=== PATIENT | male | born 1995 | race Hispanic/Latino ===

== ENCOUNTER 2016-07-30 07:28 | Emergency (ER) | payer OTHER ==
--- NOTE | 2016-07-30 10:49 | REP ---
MRA BRAIN WITHOUT CONTRAST: HISTORY: Headache. 3D [id number] MR angiography was performed at the level of the [place]. 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 There is origin of the posterior cerebral arteries. 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 There is no other aneurysm or arteriovenous malformation. Major intracranial vessels are patent. The left vertebral artery is dominant. IMPRESSION: There is a possible 2 cm aneurysm versus a hypoplastic P1 segment of the right posterior cerebral artery. Signed by Robert Chahal MD 07/30/2016 11:12 A
--- NOTE | 2016-07-30 10:52 | REP ---
MRI BRAIN WITHOUT CONTRAST: HISTORY: Headache. There are no areas of abnormal signal intensity in the brain. There is no intraparenchymal hemorrhage, infarct, mass or midline shift. The ventricular system is normal in appearance. A small arachnoid cyst is present in the left middle cranial fossa. The arachnoid cyst measures 1.5 cm in transverse by 2.5 cm in AP by 2.2 cm in cephalocaudal dimensions. There is minimal mass effect on the adjacent anteromedial left temporal lobe. There is no subdural fluid collection. The cerebellar tonsils extend 7 mm inferior through the foramen magnum consistent with cerebellar tonsillar ectopia. There is no syrinx in the visualized cervical spinal cord. The sinuses are clear. IMPRESSION: 1. Small left middle cranial fossa arachnoid cyst as described above. 2. Cerebellar tonsillar ectopia. 3. Subarachnoid and intraventricular hemorrhage cannot be excluded. Signed by Robert Chahal MD 07/30/2016 10:53 A
--- NOTE | 2016-07-30 13:07 | EDDOCDS ---
Nurse's Notes [facility] Name: Lior Locke Age: 21 yrs Sex: Male : 1995 Arrival Date: 07/30/2016 Time: 07:28 Bed 17 Private MD: Diagnosis: Headache Presentation: 07/30 07:46 Presenting complaint: Patient states: Headache began two and half weeks ago, CT in [address] [place] a week ago ? Chiari Malformation PA from [facility] sent pt here for MRI. This patient has no additional risk factors. Adult Sepsis Screening: The patient does not have new or worsening altered mentation. Patient's respiratory rate is less than 22. Systolic blood pressure is greater than 100. Patient has a qSOFA score of 0- Negative Sepsis Screen. Suicide/Homicide risk assessment- the patient denies having any suicidal and/or homicidal ideations and does not present with any other emotional, behavioral or mental health complaints. 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 Transition of care: patient was not received from another setting of care. 07:46 Acuity: ASHLEE Level 3 b1 07:46 Method Of Arrival: Walkin/Carried/Asstd mlb1 Triage Assessment: 07:56 Headache History: This patient has a history of headaches and the character of this mlb1 headache is like all previous headaches. General: Appears in no apparent distress, Behavior is appropriate for age, cooperative. Pain: Location: head Pain currently is 5 out of 10 on a pain scale. Quality of pain is described as aching. Pt Declines HIV testing. Neurological: No deficits noted. Historical: - Allergies: no known allergies; - Home Meds: 1. tramadol 50 mg Oral tab every 6 hours as needed - PMHx: bulging disc; - PSHx: none; - Social history: Smoking status: Patient states was never smoker of tobacco. No barriers to communication noted, The patient speaks fluent Armenian, Speaks appropriately for age. - Family history: Not pertinent. - : The pt / caregiver states he / she is not on anticoagulants. Home medication list is obtained from the patient. - Exposure Risk Screening:: None identified. Screenin:57 Screening information is obtained from the patient. Fall risk: No risks identified. kr3 Assistance ADL's: requires no assistance with activities of daily living. Abuse/DV Screen: The patient / caregiver reports he/she is: not in a situation that causes fear, pain or injury. Nutritional screening: No deficits noted. Advance Directives: Currently, there is no health care proxy. home support is adequate. Assessment: 08:56 Reassessment: Patient appears in no apparent distress at this time. Pain: Location: kr3 right side of head. Neurological: Level of Consciousness is awake, alert, Vegetable Grader are equal bilaterally Moves all extremities. Gait is steady, Speech is normal, Facial symmetry appears normal. Respiratory: Respiratory effort is even, unlabored. GI: Denies nausea. Derm: Skin is normal. 09:29 Reassessment: Patient appears in no apparent distress at this time. aware is waiting [facility] for his turn for MRI, watching TV with no complaints. 09:30 Adult Sepsis Screening: The patient does not have new or worsening altered mentation. kr3 Patient's respiratory rate is less than 22. Systolic blood pressure is greater than 100. Patient has a qSOFA score of 0- Negative Sepsis Screen. 10:20 Reassessment: patient in MRI. kr3 10:32 Reassessment: Patient appears in no apparent distress at this time. Pain: Location: kr3 back and right side of head Pain currently is 4 out of 10 on a pain scale. Neurological: No deficits noted. 11:16 Reassessment: Patient appears in no apparent distress at this time. resting on kr3 stretcher with no complaints at this time. aware he is waiting for results of MRI. 12:23 Adult Sepsis Screening: The patient does not have new or worsening altered mentation. kr3 Patient's respiratory rate is less than 22. Systolic blood pressure is greater than 100. Patient has a qSOFA score of 0- Negative Sepsis Screen. 12:26 Reassessment: reports steady headache of 4/10. Neurological: Level of Consciousness is kr3 awake, alert, Moves all extremities. Speech is normal, Facial symmetry appears normal. 13:06 Reassessment: Patient appears in no apparent distress at this time. Pain: Location: kr3 head Pain currently is 4 out of 10 on a pain scale. Is continuous. Respiratory: Respiratory effort is even, unlabored. Derm: Skin is pink, warm & dry. Vital Signs: 07:55 BP 138 / 69; Pulse 58; Resp 16; Temp 97.9(TE); Pulse Ox 99% on R/A; Weight 79.38 kg mlb1 (R); Height 5 ft. 7 in. (170.18 cm) (R); Pain 5/10; 12:26 BP 132 / 56; Pulse 52; Resp 16; Temp 97.9(O); Pulse Ox 100% on R/A; Pain 4/10; kr3 07:55 Body Mass Index 27.41 (79.38 kg, 170.18 cm) mlb1 Vitals: 07:55 Log In Time: July 30, 2016 at 07:28. mlb1 ED Course: 07:31 Patient visited by Jhonathan Webster Reg. pm4 07:31 Patient moved to Waiting pm4 07:46 Patient visited by Fantasma Millard, KAMINI. mlb1 07:50 Triage Initiated mlb1 07:56 Patient visited by Fantasma Millard RN. mlb1 08:16 Patient moved to 17 mlb1 08:17 Rabia Ortega MD is Attending Physician. sd1 08:22 Patient visited by Rabia Ortega MD. sd1 08:58 The patient / caregiver is instructed regarding the plan of care and ED course. Patient nathen has correct armband on for positive identification. Bed in low position. Call light in reach. 09:10 Patient visited by Julius Prajapati PCA. jlf 09:19 [facility] Payment Agreement was scanned into [employer] and attached to record. pm4 09:30 No procedures done that require assistance. kr3 09:51 Patient visited by Julius Prajapati PCA. jlf 10:32 Patient visited by Mckenzie Gibson RN. kr3 11:10 -MRA-Brain without contrast Returned. EDMS 11:10 -MRI-Brain without Returned. EDMS 11:16 Patient visited by Mckenzie Gibson RN. kr3 11:53 Patient visited by Julius Prajapati PCA. jlf 12:18 Patient visited by Julius Prajapati PCA. jlf 12:42 Alessio Ireland is Referral Physician. sd1 13:06 No IV's were initiated during this patient's visit. kr3 Order Results: Radiology Order: -MRA-Brain without contrast Test: -MRA-Brain without contrast REASON FOR EXAMINATION: headaches; MRA BRAIN WITHOUT CONTRAST:; ; HISTORY: Headache.; ; 3D [id number]-gh-[id number] MR angiography was performed at the level of the [place]. 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 There is origin of the; posterior cerebral arteries. 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 There is no other; aneurysm or arteriovenous malformation. 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 There is no; intraparenchymal hemorrhage, infarct, mass or midline shift. The ventricular; system is normal in appearance. A small arachnoid cyst is present in the left; middle cranial fossa. The arachnoid cyst measures 1.5 cm in transverse by 2.5 cm; in AP by 2.2 cm in cephalocaudal dimensions. There is minimal mass effect on the; adjacent anteromedial left temporal lobe. There is no subdural fluid collection.; The cerebellar tonsils extend 7 mm inferior through the foramen magnum consistent; with cerebellar tonsillar ectopia. There is no syrinx in the visualized cervical; spinal cord. The sinuses are clear.; ; IMPRESSION:; ; 1. 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 Cerebellar tonsillar ectopia.; ; 3. Subarachnoid and intraventricular hemorrhage cannot be excluded.; ; ; Signed by; Robert Chahal MD 07/30/2016 10:53 A; Outcome: 10:20 MRI Study completed. kr3 12:42 Discharge ordered by Provider. sd1 13:05 Discharge Assessment: patient administered narcotics - no. The following High Risk kr3 Discharge criteria are identified: None. Discharged to home ambulatory. Condition: stable. Discharge instructions given to patient, Instructed on discharge instructions, follow up and referral plans. Demonstrated understanding of instructions, Pt was receptive of discharge instructions/ teaching. Property sent home with patient. 13:06 Patient left the ED. kr3 Signatures: [facility] Rabia Jeffery MD MD sd1 Fantasma Millard RN RN mlb1 Mckenzie Gibson RN RN kr3 Julius Prajapati, AIR POLLUTION AUDITOR AIR POLLUTION AUDITOR jlf Jhonathan Webster, Reg Reg pm4 NATHANIELD
--- NOTE | 2016-07-30 13:07 | EDDOCDS ---
Physician Documentation [facility] Name: Lior Locke Age: 21 yrs Sex: Male : 1995 Arrival Date: 07/30/2016 Time: 07:28 Bed 17 Private MD: Disposition: 07/30/16 12:42 Discharged to Home/Self Care. Impression: Headache. - Condition is Stable. - Discharge Instructions: General Headache Without Cause, Migraine Headache, Migraine Headache, Liww-bf-Yutd, General Headache Without Cause, Hkly-zp-Evxu. - Medication Reconciliation, Local Pharmacy Hours form. - Follow up: Alessio Ireland; When: Call to arrange an appointment. - Problem is an ongoing problem. - Symptoms are unchanged. Historical: - Allergies: no known allergies; - Home Meds: 1. tramadol 50 mg Oral tab every 6 hours as needed - PMHx: bulging disc; - PSHx: none; - Social history: Smoking status: Patient states was never smoker of tobacco. No barriers to communication noted, The patient speaks fluent [place] Sudanese, Speaks appropriately for age. - Family history: Not pertinent. - : The pt / caregiver states he / she is not on anticoagulants. Home medication list is obtained from the patient. - Exposure Risk Screening:: None identified. Vital Signs: 07/30 07:55 BP 138 / 69; Pulse 58; Resp 16; Temp 97.9(TE); Pulse Ox 99% on R/A; Weight 79.38 kg / mlb1 175 lbs (R); Height 5 ft. 7 in. (170.18 cm) (R); Pain 5/10; 12:26 BP 132 / 56; Pulse 52; Resp 16; Temp 97.9(O); Pulse Ox 100% on R/A; Pain 4/10; kr3 07:55 Body Mass Index 27.41 (79.38 kg, 170.18 cm) mlb1 MDM: 08:23 MRI Screening Tool - Place on chart, inform RN ordered. sd1 08:23 MRI Screening Tool - Place on chart, inform RN ordered. sd1 08:23 -MRA-Brain without contrast Ordered. EDMS 08:24 -MRI-Brain without Ordered. EDMS 08:25 MRI Screening Tool - Place on chart, inform RN complete. kr3 09:06 Financial registration complete. pm4 09:06 MRI Screening Tool - Place on chart, inform RN complete. lbd 09:19 [facility] Payment Agreement was scanned into [employer] and attached to record. pm4 Signatures: Dispatcher [employer] EDMS Rabia Ortega MD MD sd1 Annemarie Cao, Potato Loader Unit lbd Fantasma Millard RN RN mlb1 Mckenzie GibsonRN RN kr3 Jhonathan Webster, Reg Reg pm4 The chart was reviewed and I authenticate all verbal orders and agree with the evaluation and treatment provided.Attachments: 09:19 [facility] Payment Agreement pm4 MTDD
--- NOTE | 2016-08-01 14:07 | EDDOCDS ---
Physician Documentation [facility] Name: Lior Locke Age: 21 yrs Sex: Male : 1995 Arrival Date: 07/30/2016 Time: 07:28 Bed 17 Private MD: Disposition: 07/30/16 12:42 Discharged to Home/Self Care. Impression: Headache. - Condition is Stable. - Discharge Instructions: General Headache Without Cause, Migraine Headache, Migraine Headache, Wbus-yj-Wfpa, General Headache Without Cause, Iuog-ev-Mefp. - Medication Reconciliation, Local Pharmacy Hours form. - Follow up: Alessio Ireland; When: Call to arrange an appointment. - Problem is an ongoing problem. - Symptoms are unchanged. Historical: - Allergies: no known allergies; - Home Meds: 1. tramadol 50 mg Oral tab every 6 hours as needed - PMHx: bulging disc; - PSHx: none; - Social history: Smoking status: Patient states was never smoker of tobacco. No barriers to communication noted, The patient speaks fluent Nepalese, Speaks appropriately for age. - Family history: Not pertinent. - : The pt / caregiver states he / she is not on anticoagulants. Home medication list is obtained from the patient. - Exposure Risk Screening:: None identified. Vital Signs: 07/30 07:55 BP 138 / 69; Pulse 58; Resp 16; Temp 97.9(TE); Pulse Ox 99% on R/A; Weight 79.38 kg / mlb1 175 lbs (R); Height 5 ft. 7 in. (170.18 cm) (R); Pain 5/10; 12:26 BP 132 / 56; Pulse 52; Resp 16; Temp 97.9(O); Pulse Ox 100% on R/A; Pain 4/10; kr3 07:55 Body Mass Index 27.41 (79.38 kg, 170.18 cm) mlb1 MDM: 08:23 MRI Screening Tool - Place on chart, inform RN ordered. sd1 08:23 MRI Screening Tool - Place on chart, inform RN ordered. sd1 08:23 -MRA-Brain without contrast Ordered. EDMS 08:24 -MRI-Brain without Ordered. EDMS 08:25 MRI Screening Tool - Place on chart, inform RN complete. kr3 09:06 Financial registration complete. pm4 09:06 MRI Screening Tool - Place on chart, inform RN complete. lbd 09:19 [facility] Payment Agreement was scanned into [employer] and attached to record. pm4 08/01 11:39 T-Sheet-- Draft Copy was scanned into [employer] and attached to record. gb Signatures: Dispatcher [employer] Rabia Jeffery MD MD sd1 Annemarie Cao, Poker Manager Unit lbd Rekha Willingham, Reg Reg gb Fantasma Millard RN RN mlb1 Mckenzie Gibson RN RN kr3 Jhonathan Webster, Reg Reg pm4 The chart was reviewed and I authenticate all verbal orders and agree with the evaluation and treatment provided.Attachments: 07/30 09:19 [facility] Payment Agreement pm4 08/01 11:39 T-Sheet-- Draft Copy gb Chart Complete MTDD
--- NOTE | 2016-08-01 14:07 | EDDOCDS ---
Physician Documentation [facility] Name: Lior Locke Age: 21 yrs Sex: Male : 1995 Arrival Date: 07/30/2016 Time: 07:28 Bed 17 Private MD: Disposition: 07/30/16 12:42 Discharged to Home/Self Care. Impression: Headache. - Condition is Stable. - Discharge Instructions: General Headache Without Cause, Migraine Headache, Migraine Headache, Dljr-qc-Hoao, General Headache Without Cause, Gziy-rv-Uuat. - Medication Reconciliation, Local Pharmacy Hours form. - Follow up: Alessio Ireland; When: Call to arrange an appointment. - Problem is an ongoing problem. - Symptoms are unchanged. Historical: - Allergies: no known allergies; - Home Meds: 1. tramadol 50 mg Oral tab every 6 hours as needed - PMHx: bulging disc; - PSHx: none; - Social history: Smoking status: Patient states was never smoker of tobacco. No barriers to communication noted, The patient speaks fluent Nicaraguan, Speaks appropriately for age. - Family history: Not pertinent. - : The pt / caregiver states he / she is not on anticoagulants. Home medication list is obtained from the patient. - Exposure Risk Screening:: None identified. Vital Signs: 07/30 07:55 BP 138 / 69; Pulse 58; Resp 16; Temp 97.9(TE); Pulse Ox 99% on R/A; Weight 79.38 kg / mlb1 175 lbs (R); Height 5 ft. 7 in. (170.18 cm) (R); Pain 5/10; 12:26 BP 132 / 56; Pulse 52; Resp 16; Temp 97.9(O); Pulse Ox 100% on R/A; Pain 4/10; kr3 07:55 Body Mass Index 27.41 (79.38 kg, 170.18 cm) mlb1 MDM: 08:23 MRI Screening Tool - Place on chart, inform RN ordered. sd1 08:23 MRI Screening Tool - Place on chart, inform RN ordered. sd1 08:23 -MRA-Brain without contrast Ordered. EDMS 08:24 -MRI-Brain without Ordered. EDMS 08:25 MRI Screening Tool - Place on chart, inform RN complete. kr3 09:06 Financial registration complete. pm4 09:06 MRI Screening Tool - Place on chart, inform RN complete. lbd 09:19 [facility] Payment Agreement was scanned into [employer] and attached to record. pm4 08/01 11:39 T-Sheet-- Draft Copy was scanned into [employer] and attached to record. gb Signatures: Dispatcher [employer] Rabia Jeffery MD MD sd1 Annemarie Cao, Cardiology Physician Unit lbd Rekha Willingham, Reg Reg gb Fantasma Millard RN RN mlb1 Mckenzie Gibson RN RN kr3 Jhonathan Webster, Reg Reg pm4 The chart was reviewed and I authenticate all verbal orders and agree with the evaluation and treatment provided.Attachments: 07/30 09:19 [facility] Payment Agreement pm4 08/01 11:39 T-Sheet-- Draft Copy gb Chart Complete MTDD
--- NOTE | 2016-08-01 14:07 | EDDOCDS ---
Nurse's Notes [facility] Name: Lior Locke Age: 21 yrs Sex: Male : 1995 Arrival Date: 07/30/2016 Time: 07:28 Bed 17 Private MD: Diagnosis: Headache Presentation: 07/30 07:46 Presenting complaint: Patient states: Headache began two and half weeks ago, CT in [address] [place] a week ago ? Chiari Malformation PA from [facility] sent pt here for MRI. This patient has no additional risk factors. Adult Sepsis Screening: The patient does not have new or worsening altered mentation. Patient's respiratory rate is less than 22. Systolic blood pressure is greater than 100. Patient has a qSOFA score of 0- Negative Sepsis Screen. Suicide/Homicide risk assessment- the patient denies having any suicidal and/or homicidal ideations and does not present with any other emotional, behavioral or mental health complaints. 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 Transition of care: patient was not received from another setting of care. 07:46 Acuity: ASHLEE Level 3 b1 07:46 Method Of Arrival: Walkin/Carried/Asstd mlb1 Triage Assessment: 07:56 Headache History: This patient has a history of headaches and the character of this mlb1 headache is like all previous headaches. General: Appears in no apparent distress, Behavior is appropriate for age, cooperative. Pain: Location: head Pain currently is 5 out of 10 on a pain scale. Quality of pain is described as aching. Pt Declines HIV testing. Neurological: No deficits noted. Historical: - Allergies: no known allergies; - Home Meds: 1. tramadol 50 mg Oral tab every 6 hours as needed - PMHx: bulging disc; - PSHx: none; - Social history: Smoking status: Patient states was never smoker of tobacco. No barriers to communication noted, The patient speaks fluent Chinese, Speaks appropriately for age. - Family history: Not pertinent. - : The pt / caregiver states he / she is not on anticoagulants. Home medication list is obtained from the patient. - Exposure Risk Screening:: None identified. Screenin:57 Screening information is obtained from the patient. Fall risk: No risks identified. kr3 Assistance ADL's: requires no assistance with activities of daily living. Abuse/DV Screen: The patient / caregiver reports he/she is: not in a situation that causes fear, pain or injury. Nutritional screening: No deficits noted. Advance Directives: Currently, there is no health care proxy. home support is adequate. Assessment: 08:56 Reassessment: Patient appears in no apparent distress at this time. Pain: Location: kr3 right side of head. Neurological: Level of Consciousness is awake, alert, Employee Development Manager are equal bilaterally Moves all extremities. Gait is steady, Speech is normal, Facial symmetry appears normal. Respiratory: Respiratory effort is even, unlabored. GI: Denies nausea. Derm: Skin is normal. 09:29 Reassessment: Patient appears in no apparent distress at this time. aware is waiting [facility] for his turn for MRI, watching TV with no complaints. 09:30 Adult Sepsis Screening: The patient does not have new or worsening altered mentation. kr3 Patient's respiratory rate is less than 22. Systolic blood pressure is greater than 100. Patient has a qSOFA score of 0- Negative Sepsis Screen. 10:20 Reassessment: patient in MRI. kr3 10:32 Reassessment: Patient appears in no apparent distress at this time. Pain: Location: kr3 back and right side of head Pain currently is 4 out of 10 on a pain scale. Neurological: No deficits noted. 11:16 Reassessment: Patient appears in no apparent distress at this time. resting on kr3 stretcher with no complaints at this time. aware he is waiting for results of MRI. 12:23 Adult Sepsis Screening: The patient does not have new or worsening altered mentation. kr3 Patient's respiratory rate is less than 22. Systolic blood pressure is greater than 100. Patient has a qSOFA score of 0- Negative Sepsis Screen. 12:26 Reassessment: reports steady headache of 4/10. Neurological: Level of Consciousness is kr3 awake, alert, Moves all extremities. Speech is normal, Facial symmetry appears normal. 13:06 Reassessment: Patient appears in no apparent distress at this time. Pain: Location: kr3 head Pain currently is 4 out of 10 on a pain scale. Is continuous. Respiratory: Respiratory effort is even, unlabored. Derm: Skin is pink, warm & dry. Vital Signs: 07:55 BP 138 / 69; Pulse 58; Resp 16; Temp 97.9(TE); Pulse Ox 99% on R/A; Weight 79.38 kg mlb1 (R); Height 5 ft. 7 in. (170.18 cm) (R); Pain 5/10; 12:26 BP 132 / 56; Pulse 52; Resp 16; Temp 97.9(O); Pulse Ox 100% on R/A; Pain 4/10; kr3 07:55 Body Mass Index 27.41 (79.38 kg, 170.18 cm) mlb1 Vitals: 07:55 Log In Time: July 30, 2016 at 07:28. mlb1 ED Course: 07:31 Patient visited by Jhonathan Webster Reg. pm4 07:31 Patient moved to Waiting pm4 07:46 Patient visited by Fantasma Millard, KAMINI. mlb1 07:50 Triage Initiated mlb1 07:56 Patient visited by Fantasma Millard, KAMINI. mlb1 08:16 Patient moved to 17 mlb1 08:17 Rabia Ortega MD is Attending Physician. sd1 08:22 Patient visited by Rabia Ortega MD. sd1 08:58 The patient / caregiver is instructed regarding the plan of care and ED course. Patient nathen has correct armband on for positive identification. Bed in low position. Call light in reach. 09:10 Patient visited by Julius Prajapati PCA. jlf 09:19 [facility] Payment Agreement was scanned into [employer] and attached to record. pm4 09:30 No procedures done that require assistance. kr3 09:51 Patient visited by Julius Prajapati PCA. jlf 10:32 Patient visited by Mckenzie Gibson RN. kr3 11:10 -MRA-Brain without contrast Returned. EDMS 11:10 -MRI-Brain without Returned. EDMS 11:16 Patient visited by Mckenzie Gibson RN. kr3 11:53 Patient visited by Julius Prajapati PCA. jlf 12:18 Patient visited by Julius Prajapati PCA. jlf 12:42 Alessio Ireland is Referral Physician. sd1 13:06 No IV's were initiated during this patient's visit. kr3 08/01 11:39 T-Sheet-- Draft Copy was scanned into [employer] and attached to record. gb Order Results: Radiology Order: -MRA-Brain without contrast Test: -MRA-Brain without contrast REASON FOR EXAMINATION: headaches; MRA BRAIN WITHOUT CONTRAST:; ; HISTORY: Headache.; ; 3D [id number] MR angiography was performed at the level of the [place] of; [place]. 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 There is origin of the; posterior cerebral arteries. 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 There is no other; aneurysm or arteriovenous malformation. 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 There is no; intraparenchymal hemorrhage, infarct, mass or midline shift. The ventricular; system is normal in appearance. A small arachnoid cyst is present in the left; middle cranial fossa. The arachnoid cyst measures 1.5 cm in transverse by 2.5 cm; in AP by 2.2 cm in cephalocaudal dimensions. There is minimal mass effect on the; adjacent anteromedial left temporal lobe. There is no subdural fluid collection.; The cerebellar tonsils extend 7 mm inferior through the foramen magnum consistent; with cerebellar tonsillar ectopia. There is no syrinx in the visualized cervical; spinal cord. The sinuses are clear.; ; IMPRESSION:; ; 1. 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 Cerebellar tonsillar ectopia.; ; 3. Subarachnoid and intraventricular hemorrhage cannot be excluded.; ; ; Signed by; Robert Chahal MD 07/30/2016 10:53 A; Outcome: 07/30 10:20 MRI Study completed. kr3 12:42 Discharge ordered by Provider. sd1 13:05 Discharge Assessment: patient administered narcotics - no. The following High Risk kr3 Discharge criteria are identified: None. Discharged to home ambulatory. Condition: stable. Discharge instructions given to patient, Instructed on discharge instructions, follow up and referral plans. Demonstrated understanding of instructions, Pt was receptive of discharge instructions/ teaching. Property sent home with patient. 13:06 Patient left the ED. kr3 Signatures: Dispatcher [employer] EDMS Rabia Ortega MD MD sd1 Rekha Willingham, Reg Reg gb Fantasma Millard RN RN mlb1 Mckenzie Gibson,RN RN kr3 Julius Prajapati, COURT RECORDER COURT RECORDER jl Jhonathan Webster, Reg Reg pm4 Chart Complete MTDD
--- NOTE | 2016-08-01 21:24 | EDDOCDS ---
Nurse's Notes [facility] Name: Lior Locke Age: 21 yrs Sex: Male : 1995 Arrival Date: 07/30/2016 Time: 07:28 Bed 17 Private MD: Diagnosis: Headache Presentation: 07/30 07:46 Presenting complaint: Patient states: Headache began two and half weeks ago, CT in [address] [place] a week ago ? Chiari Malformation PA from [facility] sent pt here for MRI. This patient has no additional risk factors. Adult Sepsis Screening: The patient does not have new or worsening altered mentation. Patient's respiratory rate is less than 22. Systolic blood pressure is greater than 100. Patient has a qSOFA score of 0- Negative Sepsis Screen. Suicide/Homicide risk assessment- the patient denies having any suicidal and/or homicidal ideations and does not present with any other emotional, behavioral or mental health complaints. 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 Transition of care: patient was not received from another setting of care. 07:46 Acuity: ASHLEE Level 3 b1 07:46 Method Of Arrival: Walkin/Carried/Asstd mlb1 Triage Assessment: 07:56 Headache History: This patient has a history of headaches and the character of this mlb1 headache is like all previous headaches. General: Appears in no apparent distress, Behavior is appropriate for age, cooperative. Pain: Location: head Pain currently is 5 out of 10 on a pain scale. Quality of pain is described as aching. Pt Declines HIV testing. Neurological: No deficits noted. Historical: - Allergies: no known allergies; - Home Meds: 1. tramadol 50 mg Oral tab every 6 hours as needed - PMHx: bulging disc; - PSHx: none; - Social history: Smoking status: Patient states was never smoker of tobacco. No barriers to communication noted, The patient speaks fluent Icelandic, Speaks appropriately for age. - Family history: Not pertinent. - : The pt / caregiver states he / she is not on anticoagulants. Home medication list is obtained from the patient. - Exposure Risk Screening:: None identified. Screenin:57 Screening information is obtained from the patient. Fall risk: No risks identified. kr3 Assistance ADL's: requires no assistance with activities of daily living. Abuse/DV Screen: The patient / caregiver reports he/she is: not in a situation that causes fear, pain or injury. Nutritional screening: No deficits noted. Advance Directives: Currently, there is no health care proxy. home support is adequate. Assessment: 08:56 Reassessment: Patient appears in no apparent distress at this time. Pain: Location: kr3 right side of head. Neurological: Level of Consciousness is awake, alert, [place] G[place] are equal bilaterally Moves all extremities. Gait is steady, Speech is normal, Facial symmetry appears normal. Respiratory: Respiratory effort is even, unlabored. GI: Denies nausea. Derm: Skin is normal. 09:29 Reassessment: Patient appears in no apparent distress at this time. aware is waiting [facility] for his turn for MRI, watching TV with no complaints. 09:30 Adult Sepsis Screening: The patient does not have new or worsening altered mentation. kr3 Patient's respiratory rate is less than 22. Systolic blood pressure is greater than 100. Patient has a qSOFA score of 0- Negative Sepsis Screen. 10:20 Reassessment: patient in MRI. kr3 10:32 Reassessment: Patient appears in no apparent distress at this time. Pain: Location: kr3 back and right side of head Pain currently is 4 out of 10 on a pain scale. Neurological: No deficits noted. 11:16 Reassessment: Patient appears in no apparent distress at this time. resting on kr3 stretcher with no complaints at this time. aware he is waiting for results of MRI. 12:23 Adult Sepsis Screening: The patient does not have new or worsening altered mentation. kr3 Patient's respiratory rate is less than 22. Systolic blood pressure is greater than 100. Patient has a qSOFA score of 0- Negative Sepsis Screen. 12:26 Reassessment: reports steady headache of 4/10. Neurological: Level of Consciousness is kr3 awake, alert, Moves all extremities. Speech is normal, Facial symmetry appears normal. 13:06 Reassessment: Patient appears in no apparent distress at this time. Pain: Location: kr3 head Pain currently is 4 out of 10 on a pain scale. Is continuous. Respiratory: Respiratory effort is even, unlabored. Derm: Skin is pink, warm & dry. Vital Signs: 07:55 BP 138 / 69; Pulse 58; Resp 16; Temp 97.9(TE); Pulse Ox 99% on R/A; Weight 79.38 kg mlb1 (R); Height 5 ft. 7 in. (170.18 cm) (R); Pain 5/10; 12:26 BP 132 / 56; Pulse 52; Resp 16; Temp 97.9(O); Pulse Ox 100% on R/A; Pain 4/10; kr3 07:55 Body Mass Index 27.41 (79.38 kg, 170.18 cm) mlb1 Vitals: 07:55 Log In Time: July 30, 2016 at 07:28. mlb1 ED Course: 07:31 Patient visited by Jhonathan Webster Reg. pm4 07:31 Patient moved to Waiting pm4 07:46 Patient visited by Fantasma Millard, KAMINI. mlb1 07:50 Triage Initiated mlb1 07:56 Patient visited by Fantasma Millard, KAMINI. mlb1 08:16 Patient moved to 17 mlb1 08:17 Rabia Ortega MD is Attending Physician. sd1 08:22 Patient visited by Rabia Ortega MD. sd1 08:58 The patient / caregiver is instructed regarding the plan of care and ED course. Patient nathen has correct armband on for positive identification. Bed in low position. Call light in reach. 09:10 Patient visited by Julius Prajapati PCA. jlf 09:19 [facility] Payment Agreement was scanned into [employer] and attached to record. pm4 09:30 No procedures done that require assistance. kr3 09:51 Patient visited by Julius Prajapati PCA. jlf 10:32 Patient visited by Mckenzie Gibson RN. kr3 11:10 -MRA-Brain without contrast Returned. EDMS 11:10 -MRI-Brain without Returned. EDMS 11:16 Patient visited by Mckenzie Gibson RN. kr3 11:53 Patient visited by Julius Prajapati PCA. jlf 12:18 Patient visited by Julius Prajapati PCA. jlf 12:42 Alessio Ireland is Referral Physician. sd1 13:06 No IV's were initiated during this patient's visit. kr3 08/01 11:39 T-Sheet-- Draft Copy was scanned into [employer] and attached to record. gb Order Results: Radiology Order: -MRA-Brain without contrast Test: -MRA-Brain without contrast REASON FOR EXAMINATION: headaches; MRA BRAIN WITHOUT CONTRAST:; ; HISTORY: Headache.; ; 3D [id number] MR angiography was performed at the level of the [place] of; [place]. 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 There is origin of the; posterior cerebral arteries. 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 There is no other; aneurysm or arteriovenous malformation. 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 There is no; intraparenchymal hemorrhage, infarct, mass or midline shift. The ventricular; system is normal in appearance. A small arachnoid cyst is present in the left; middle cranial fossa. The arachnoid cyst measures 1.5 cm in transverse by 2.5 cm; in AP by 2.2 cm in cephalocaudal dimensions. There is minimal mass effect on the; adjacent anteromedial left temporal lobe. There is no subdural fluid collection.; The cerebellar tonsils extend 7 mm inferior through the foramen magnum consistent; with cerebellar tonsillar ectopia. There is no syrinx in the visualized cervical; spinal cord. The sinuses are clear.; ; IMPRESSION:; ; 1. 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 Cerebellar tonsillar ectopia.; ; 3. Subarachnoid and intraventricular hemorrhage cannot be excluded.; ; ; Signed by; Robert Chahal MD 07/30/2016 10:53 A; Outcome: 07/30 10:20 MRI Study completed. kr3 12:42 Discharge ordered by Provider. sd1 13:05 Discharge Assessment: patient administered narcotics - no. The following High Risk kr3 Discharge criteria are identified: None. Discharged to home ambulatory. Condition: stable. Discharge instructions given to patient, Instructed on discharge instructions, follow up and referral plans. Demonstrated understanding of instructions, Pt was receptive of discharge instructions/ teaching. Property sent home with patient. 13:06 Patient left the ED. kr3 Signatures: Dispatcher [employer] EDMS Rabia Ortega MD MD sd1 Rekha Willingham, Reg Reg gb Fantasma Millard RN RN mlb1 Mckenzie Gibson,RN RN kr3 Julius Prajapati, ZINC ETCHER ZINC ETCHER jl Jhonathan Webster, Reg Reg pm4 Chart Complete MTDD
--- NOTE | 2016-08-01 21:24 | EDDOCDS ---
Physician Documentation [facility] Name: Lior Locke Age: 21 yrs Sex: Male : 1995 Arrival Date: 07/30/2016 Time: 07:28 Bed 17 Private MD: Disposition: 07/30/16 12:42 Discharged to Home/Self Care. Impression: Headache. - Condition is Stable. - Discharge Instructions: General Headache Without Cause, Migraine Headache, Migraine Headache, [id number]-[id number], General Headache Without Cause, Qlyp-jj-Vftb. - Medication Reconciliation, Local Pharmacy Hours form. - Follow up: Alessio Ireland; When: Call to arrange an appointment. - Problem is an ongoing problem. - Symptoms are unchanged. Historical: - Allergies: no known allergies; - Home Meds: 1. tramadol 50 mg Oral tab every 6 hours as needed - PMHx: bulging disc; - PSHx: none; - Social history: Smoking status: Patient states was never smoker of tobacco. No barriers to communication noted, The patient speaks fluent [place], Speaks appropriately for age. - Family history: Not pertinent. - : The pt / caregiver states he / she is not on anticoagulants. Home medication list is obtained from the patient. - Exposure Risk Screening:: None identified. Vital Signs: 07/30 07:55 BP 138 / 69; Pulse 58; Resp 16; Temp 97.9(TE); Pulse Ox 99% on R/A; Weight 79.38 kg / mlb1 175 lbs (R); Height 5 ft. 7 in. (170.18 cm) (R); Pain 5/10; 12:26 BP 132 / 56; Pulse 52; Resp 16; Temp 97.9(O); Pulse Ox 100% on R/A; Pain 4/10; kr3 07:55 Body Mass Index 27.41 (79.38 kg, 170.18 cm) mlb1 MDM: 08:23 MRI Screening Tool - Place on chart, inform RN ordered. sd1 08:23 MRI Screening Tool - Place on chart, inform RN ordered. sd1 08:23 -MRA-Brain without contrast Ordered. EDMS 08:24 -MRI-Brain without Ordered. EDMS 08:25 MRI Screening Tool - Place on chart, inform RN complete. kr3 09:06 Financial registration complete. pm4 09:06 MRI Screening Tool - Place on chart, inform RN complete. lbd 09:19 [facility] Payment Agreement was scanned into [employer] and attached to record. pm4 08/01 11:39 T-Sheet-- Draft Copy was scanned into [employer] and attached to record. gb Addendum: 21:22 Radiology Callback: Radiology results faxed to primary care physician/provider. mri/a ml brain faxed to dr ireland for mlg. Signatures: Dispatcher [employer] EDMS Rabia Ortega MD MD sd1 Ashli Villatoro MD MD ml Annemarie Cao, Wax Pattern Repairer Unit lbd Rekha Willingham, Reg Reg gb Fantasma Millard RN RN mlb1 Mckenzie Gibson,RN RN kr3 Jhonathan Webster, Reg Reg pm4 The chart was reviewed and I authenticate all verbal orders and agree with the evaluation and treatment provided.Attachments: 07/30 09:19 [facility] Payment Agreement pm4 08/01 11:39 T-Sheet-- Draft Copy gb Chart Complete MTDD
--- NOTE | 2016-08-01 21:24 | EDDOCDS ---
Physician Documentation [facility] Name: Lior Locke Age: 21 yrs Sex: Male : 1995 Arrival Date: 07/30/2016 Time: 07:28 Bed 17 Private MD: Disposition: 07/30/16 12:42 Discharged to Home/Self Care. Impression: Headache. - Condition is Stable. - Discharge Instructions: General Headache Without Cause, Migraine Headache, Migraine Headache, Zdli-cx-[id number], General Headache Without Cause, Dmbc-ag-Krxz. - Medication Reconciliation, Local Pharmacy Hours form. - Follow up: Alessio Ireland; When: Call to arrange an appointment. - Problem is an ongoing problem. - Symptoms are unchanged. Historical: - Allergies: no known allergies; - Home Meds: 1. tramadol 50 mg Oral tab every 6 hours as needed - PMHx: bulging disc; - PSHx: none; - Social history: Smoking status: Patient states was never smoker of tobacco. No barriers to communication noted, The patient speaks fluent Amharic, Speaks appropriately for age. - Family history: Not pertinent. - : The pt / caregiver states he / she is not on anticoagulants. Home medication list is obtained from the patient. - Exposure Risk Screening:: None identified. Vital Signs: 07/30 07:55 BP 138 / 69; Pulse 58; Resp 16; Temp 97.9(TE); Pulse Ox 99% on R/A; Weight 79.38 kg / mlb1 175 lbs (R); Height 5 ft. 7 in. (170.18 cm) (R); Pain 5/10; 12:26 BP 132 / 56; Pulse 52; Resp 16; Temp 97.9(O); Pulse Ox 100% on R/A; Pain 4/10; kr3 07:55 Body Mass Index 27.41 (79.38 kg, 170.18 cm) mlb1 MDM: 08:23 MRI Screening Tool - Place on chart, inform RN ordered. sd1 08:23 MRI Screening Tool - Place on chart, inform RN ordered. sd1 08:23 -MRA-Brain without contrast Ordered. EDMS 08:24 -MRI-Brain without Ordered. EDMS 08:25 MRI Screening Tool - Place on chart, inform RN complete. kr3 09:06 Financial registration complete. pm4 09:06 MRI Screening Tool - Place on chart, inform RN complete. lbd 09:19 [facility] Payment Agreement was scanned into [employer] and attached to record. pm4 08/01 11:39 T-Sheet-- Draft Copy was scanned into [employer] and attached to record. gb Addendum: 21:22 Radiology Callback: Radiology results faxed to primary care physician/provider. mri/a ml brain faxed to dr ireland for mlg. Signatures: Dispatcher [employer] EDMS Rabia Ortega MD MD sd1 Ashli Villatoro MD MD ml Annemarie Cao, Bottle Gauger Unit lbd Rekha Willingham, Reg Reg gb Fantasma Millard RN RN mlb1 Mckenzie Gibson,RN RN kr3 Jhonathan Webster, Reg Reg pm4 The chart was reviewed and I authenticate all verbal orders and agree with the evaluation and treatment provided.Attachments: 07/30 09:19 [facility] Payment Agreement pm4 08/01 11:39 T-Sheet-- Draft Copy gb MTDD
--- NOTE | 2016-08-01 21:24 | EDDOCDS ---
Nurse's Notes [facility] Name: Lior Locke Age: 21 yrs Sex: Male : 1995 Arrival Date: 07/30/2016 Time: 07:28 Bed 17 Private MD: Diagnosis: Headache Presentation: 07/30 07:46 Presenting complaint: Patient states: Headache began two and half weeks ago, CT in [address] [place] a week ago ? Chiari Malformation PA from [facility] sent pt here for MRI. This patient has no additional risk factors. Adult Sepsis Screening: The patient does not have new or worsening altered mentation. Patient's respiratory rate is less than 22. Systolic blood pressure is greater than 100. Patient has a qSOFA score of 0- Negative Sepsis Screen. Suicide/Homicide risk assessment- the patient denies having any suicidal and/or homicidal ideations and does not present with any other emotional, behavioral or mental health complaints. 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 Transition of care: patient was not received from another setting of care. 07:46 Acuity: ASHLEE Level 3 b1 07:46 Method Of Arrival: Walkin/Carried/Asstd mlb1 Triage Assessment: 07:56 Headache History: This patient has a history of headaches and the character of this mlb1 headache is like all previous headaches. General: Appears in no apparent distress, Behavior is appropriate for age, cooperative. Pain: Location: head Pain currently is 5 out of 10 on a pain scale. Quality of pain is described as aching. Pt Declines HIV testing. Neurological: No deficits noted. Historical: - Allergies: no known allergies; - Home Meds: 1. tramadol 50 mg Oral tab every 6 hours as needed - PMHx: bulging disc; - PSHx: none; - Social history: Smoking status: Patient states was never smoker of tobacco. No barriers to communication noted, The patient speaks fluent Yi, Speaks appropriately for age. - Family history: Not pertinent. - : The pt / caregiver states he / she is not on anticoagulants. Home medication list is obtained from the patient. - Exposure Risk Screening:: None identified. Screenin:57 Screening information is obtained from the patient. Fall risk: No risks identified. kr3 Assistance ADL's: requires no assistance with activities of daily living. Abuse/DV Screen: The patient / caregiver reports he/she is: not in a situation that causes fear, pain or injury. Nutritional screening: No deficits noted. Advance Directives: Currently, there is no health care proxy. home support is adequate. Assessment: 08:56 Reassessment: Patient appears in no apparent distress at this time. Pain: Location: kr3 right side of head. Neurological: Level of Consciousness is awake, alert, Comb Winder are equal bilaterally Moves all extremities. Gait is steady, Speech is normal, Facial symmetry appears normal. Respiratory: Respiratory effort is even, unlabored. GI: Denies nausea. Derm: Skin is normal. 09:29 Reassessment: Patient appears in no apparent distress at this time. aware is waiting [facility] [place] for his turn for MRI, watching TV with no complaints. 09:30 Adult Sepsis Screening: The patient does not have new or worsening altered mentation. kr3 Patient's respiratory rate is less than 22. Systolic blood pressure is greater than 100. Patient has a qSOFA score of 0- Negative Sepsis Screen. 10:20 Reassessment: patient in MRI. kr3 10:32 Reassessment: Patient appears in no apparent distress at this time. Pain: Location: kr3 back and right side of head Pain currently is 4 out of 10 on a pain scale. Neurological: No deficits noted. 11:16 Reassessment: Patient appears in no apparent distress at this time. resting on kr3 stretcher with no complaints at this time. aware he is waiting for results of MRI. 12:23 Adult Sepsis Screening: The patient does not have new or worsening altered mentation. kr3 Patient's respiratory rate is less than 22. Systolic blood pressure is greater than 100. Patient has a qSOFA score of 0- Negative Sepsis Screen. 12:26 Reassessment: reports steady headache of 4/10. Neurological: Level of Consciousness is kr3 awake, alert, Moves all extremities. Speech is normal, Facial symmetry appears normal. 13:06 Reassessment: Patient appears in no apparent distress at this time. Pain: Location: kr3 head Pain currently is 4 out of 10 on a pain scale. Is continuous. Respiratory: Respiratory effort is even, unlabored. Derm: Skin is pink, warm & dry. Vital Signs: 07:55 BP 138 / 69; Pulse 58; Resp 16; Temp 97.9(TE); Pulse Ox 99% on R/A; Weight 79.38 kg mlb1 (R); Height 5 ft. 7 in. (170.18 cm) (R); Pain 5/10; 12:26 BP 132 / 56; Pulse 52; Resp 16; Temp 97.9(O); Pulse Ox 100% on R/A; Pain 4/10; kr3 07:55 Body Mass Index 27.41 (79.38 kg, 170.18 cm) mlb1 Vitals: 07:55 Log In Time: July 30, 2016 at 07:28. mlb1 ED Course: 07:31 Patient visited by Jhonathan Webster Reg. pm4 07:31 Patient moved to Waiting pm4 07:46 Patient visited by Fantasma Millard, KAMINI. mlb1 07:50 Triage Initiated mlb1 07:56 Patient visited by Fantasma Millard, KAMINI. mlb1 08:16 Patient moved to 17 mlb1 08:17 Rabia Ortega MD is Attending Physician. sd1 08:22 Patient visited by Rabia Ortega MD. sd1 08:58 The patient / caregiver is instructed regarding the plan of care and ED course. Patient nathen has correct armband on for positive identification. Bed in low position. Call light in reach. 09:10 Patient visited by Julius Prajapati PCA. jlf 09:19 [facility] Payment Agreement was scanned into [employer] and attached to record. pm4 09:30 No procedures done that require assistance. kr3 09:51 Patient visited by Julius Prajapati PCA. jlf 10:32 Patient visited by Mckenzie Gibson RN. kr3 11:10 -MRA-Brain without contrast Returned. EDMS 11:10 -MRI-Brain without Returned. EDMS 11:16 Patient visited by Mckenzie Gibson RN. kr3 11:53 Patient visited by Julius Prajapati PCA. jlf 12:18 Patient visited by Julius Prajapati PCA. jlf 12:42 Alessio Ireland is Referral Physician. sd1 13:06 No IV's were initiated during this patient's visit. kr3 08/01 11:39 T-Sheet-- Draft Copy was scanned into [employer] and attached to record. gb Order Results: Radiology Order: -MRA-Brain without contrast Test: -MRA-Brain without contrast REASON FOR EXAMINATION: headaches; MRA BRAIN WITHOUT CONTRAST:; ; HISTORY: Headache.; ; 3D [id number] MR angiography was performed at the level of the tolowa dee-ni' of; Ramos. 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 There is origin of the; posterior cerebral arteries. 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 There is no other; aneurysm or arteriovenous malformation. 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 There is no; intraparenchymal hemorrhage, infarct, mass or midline shift. The ventricular; system is normal in appearance. A small arachnoid cyst is present in the left; middle cranial fossa. The arachnoid cyst measures 1.5 cm in transverse by 2.5 cm; in AP by 2.2 cm in cephalocaudal dimensions. There is minimal mass effect on the; adjacent anteromedial left temporal lobe. There is no subdural fluid collection.; The cerebellar tonsils extend 7 mm inferior through the foramen magnum consistent; with cerebellar tonsillar ectopia. There is no syrinx in the visualized cervical; spinal cord. The sinuses are clear.; ; IMPRESSION:; ; 1. 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 Cerebellar tonsillar ectopia.; ; 3. Subarachnoid and intraventricular hemorrhage cannot be excluded.; ; ; Signed by; Robert Chahal MD 07/30/2016 10:53 A; Outcome: 07/30 10:20 MRI Study completed. kr3 12:42 Discharge ordered by Provider. sd1 13:05 Discharge Assessment: patient administered narcotics - no. The following High Risk kr3 Discharge criteria are identified: None. Discharged to home ambulatory. Condition: stable. Discharge instructions given to patient, Instructed on discharge instructions, follow up and referral plans. Demonstrated understanding of instructions, Pt was receptive of discharge instructions/ teaching. Property sent home with patient. 13:06 Patient left the ED. kr3 Signatures: Dispatcher [employer] EDMS Rabia Ortega MD MD sd1 Rekha Willingham, Reg Reg gb Fantasma Millard RN RN mlb1 Mckenzie Gibson RN RN kr3 Julius Prajapati, CISTERN ROOM OPERATOR CISTERN ROOM OPERATOR jlf Jhonathan Webster, Reg Reg pm4 MTDD
--- NOTE | 2016-08-01 21:24 | EDDOCDS ---
Physician Documentation [facility] Name: Lior Locke Age: 21 yrs Sex: Male : 1995 Arrival Date: 07/30/2016 Time: 07:28 Bed 17 Private MD: Disposition: 07/30/16 12:42 Discharged to Home/Self Care. Impression: Headache. - Condition is Stable. - Discharge Instructions: General Headache Without Cause, Migraine Headache, Migraine Headache, [id number]-[id number], General Headache Without Cause, Stdc-ma-Esih. - Medication Reconciliation, Local Pharmacy Hours form. - Follow up: Alessio Ireland; When: Call to arrange an appointment. - Problem is an ongoing problem. - Symptoms are unchanged. Historical: - Allergies: no known allergies; - Home Meds: 1. tramadol 50 mg Oral tab every 6 hours as needed - PMHx: bulging disc; - PSHx: none; - Social history: Smoking status: Patient states was never smoker of tobacco. No barriers to communication noted, The patient speaks fluent Trinidadian, Speaks appropriately for age. - Family history: Not pertinent. - : The pt / caregiver states he / she is not on anticoagulants. Home medication list is obtained from the patient. - Exposure Risk Screening:: None identified. Vital Signs: 07/30 07:55 BP 138 / 69; Pulse 58; Resp 16; Temp 97.9(TE); Pulse Ox 99% on R/A; Weight 79.38 kg / mlb1 175 lbs (R); Height 5 ft. 7 in. (170.18 cm) (R); Pain 5/10; 12:26 BP 132 / 56; Pulse 52; Resp 16; Temp 97.9(O); Pulse Ox 100% on R/A; Pain 4/10; kr3 07:55 Body Mass Index 27.41 (79.38 kg, 170.18 cm) mlb1 MDM: 08:23 MRI Screening Tool - Place on chart, inform RN ordered. sd1 08:23 MRI Screening Tool - Place on chart, inform RN ordered. sd1 08:23 -MRA-Brain without contrast Ordered. EDMS 08:24 -MRI-Brain without Ordered. EDMS 08:25 MRI Screening Tool - Place on chart, inform RN complete. kr3 09:06 Financial registration complete. pm4 09:06 MRI Screening Tool - Place on chart, inform RN complete. lbd 09:19 [facility] Payment Agreement was scanned into [employer] and attached to record. pm4 08/01 11:39 T-Sheet-- Draft Copy was scanned into [employer] and attached to record. gb Addendum: 21:22 Radiology Callback: Radiology results faxed to primary care physician/provider. mri/a ml brain faxed to dr ireland for mlg. Signatures: Dispatcher [employer] EDMS Rabia Oretga MD MD sd1 Ashli Villatoro MD MD ml Annemarie Cao, Regulatory Affairs Manager Unit lbd Rekha Willingham, Reg Reg gb Fantasma Millard RN RN mlb1 Mckenzie Gibson,RN RN kr3 Jhonathan Webster, Reg Reg pm4 The chart was reviewed and I authenticate all verbal orders and agree with the evaluation and treatment provided.Attachments: 07/30 09:19 [facility] Payment Agreement pm4 08/01 11:39 T-Sheet-- Draft Copy gb Chart Complete MTDD
--- NOTE | 2016-08-01 21:24 | EDDOCDS ---
Physician Documentation [facility] Name: Lior Locke Age: 21 yrs Sex: Male : 1995 Arrival Date: 07/30/2016 Time: 07:28 Bed 17 Private MD: Disposition: 07/30/16 12:42 Discharged to Home/Self Care. Impression: Headache. - Condition is Stable. - Discharge Instructions: General Headache Without Cause, Migraine Headache, Migraine Headache, Leuz-xg-Pqlp, General Headache Without Cause, Aeng-vk-Vlvk. - Medication Reconciliation, Local Pharmacy Hours form. - Follow up: Alessio Ireland; When: Call to arrange an appointment. - Problem is an ongoing problem. - Symptoms are unchanged. Historical: - Allergies: no known allergies; - Home Meds: 1. tramadol 50 mg Oral tab every 6 hours as needed - PMHx: bulging disc; - PSHx: none; - Social history: Smoking status: Patient states was never smoker of tobacco. No barriers to communication noted, The patient speaks fluent Amharic, Speaks appropriately for age. - Family history: Not pertinent. - : The pt / caregiver states he / she is not on anticoagulants. Home medication list is obtained from the patient. - Exposure Risk Screening:: None identified. Vital Signs: 07/30 07:55 BP 138 / 69; Pulse 58; Resp 16; Temp 97.9(TE); Pulse Ox 99% on R/A; Weight 79.38 kg / mlb1 175 lbs (R); Height 5 ft. 7 in. (170.18 cm) (R); Pain 5/10; 12:26 BP 132 / 56; Pulse 52; Resp 16; Temp 97.9(O); Pulse Ox 100% on R/A; Pain 4/10; kr3 07:55 Body Mass Index 27.41 (79.38 kg, 170.18 cm) mlb1 MDM: 08:23 MRI Screening Tool - Place on chart, inform RN ordered. sd1 08:23 MRI Screening Tool - Place on chart, inform RN ordered. sd1 08:23 -MRA-Brain without contrast Ordered. EDMS 08:24 -MRI-Brain without Ordered. EDMS 08:25 MRI Screening Tool - Place on chart, inform RN complete. kr3 09:06 Financial registration complete. pm4 09:06 MRI Screening Tool - Place on chart, inform RN complete. lbd 09:19 [facility] Payment Agreement was scanned into [employer] and attached to record. pm4 08/01 11:39 T-Sheet-- Draft Copy was scanned into [employer] and attached to record. gb Addendum: 21:22 Radiology Callback: Radiology results faxed to primary care physician/provider. mri/a ml brain faxed to dr ireland for mlg. Signatures: Dispatcher [employer] EDMS Rabia Ortega MD MD sd1 Ashli Villatoro MD MD ml Annemarie Cao, Programs Director Unit lbd Rekha Willingham, Reg Reg gb Fantasma Millard RN RN mlb1 Mckenzie Gibson,RN RN kr3 Jhonathan Webster, Reg Reg pm4 The chart was reviewed and I authenticate all verbal orders and agree with the evaluation and treatment provided.Attachments: 07/30 09:19 [facility] Payment Agreement pm4 08/01 11:39 T-Sheet-- Draft Copy gb MTDD
== END 2016-07-30 13:06 | disposition home or self-care (01) ==
LOC: M ED 07:28
DX: R51 Headache (principal); G93.0 Cerebral cysts; Q04.8 Other specified congenital malformations of brain; M51.9 Unspecified thoracic, thoracolumbar and lumbosacral intervertebral disc disorder

== ENCOUNTER → 2017-01-12 | Outpatient (REF) | payer OTHER | LOC: M LAB REF 13:15 | PROVIDERS: ATTEND Nurse Practitioner Family | DX: R30.0 Dysuria (principal) ==